=== PATIENT | male | born 1960 | race Two or more races ===

== ENCOUNTER 2024-10-09 11:37 | Inpatient (IN) | payer OTHER ==
[2024-10-09 11:59] VITALS: BMI 14.8
[2024-10-09] MEDS ORDERED: MORPHINE SULFATE 2 MG/ML SYRINGE ONE (13:05)
[2024-10-09 13:51] LABS: ABSOLUTE IMMATURE GRANULOCYTES 0.02 x10^3/uL (0.0-0.031); BASOPHILS # 0.04 x10^3/uL (0.01-0.08); EOSINOPHIL % 2.8 % (0.8-7.0); EOSINOPHILS # 0.16 x10^3/uL (0.04-0.54); HEMATOCRIT 35.6 % (40.1-51.0); HEMOGLOBIN 12.4 g/dL (13.7-17.5); MCHC 34.8 g/dl (32.3-36.5); MEAN CELL VOLUME 91.5 fl (79.0-92.2); MEAN PLT VOLUME 9.5 fl (9.4-12.4); MONOCYTE # 0.64 x10^3/uL (0.30-0.82); MONOCYTE % 11.3 % (5.3-12.2); PLATELET COUNT 362 x10^3/uL (163-337)
[2024-10-09] MEDS ORDERED: PIPERACILLIN/TAZOB 4.5 GM 4.5 GM/100 ML BAG IVPB ONE (13:55)
[2024-10-09 14:01] LABS: POTASSIUM 5.6 mmol/L (3.5-5.1)
[2024-10-09 14:04] LABS: ALBUMIN 3.5 g/dl (3.4-5.0); CALCIUM 9.8 mg/dL (8.5-10.1)
[2024-10-09 14:05] LABS: BLOOD UREA NITROGEN 6.1 mg/dL (7-18)
[2024-10-09 14:07] LABS: CREATININE 0.6 mg/dL (0.55-1.3)
[2024-10-09 14:09] LABS: BILIRUBIN,TOTAL 0.5 mg/dL (0.2-1); TOT PROT 7.8 g/dl (6.4-8.2)
[2024-10-09] MEDS: PIPERACILLIN/TAZOB 4.5 GM 4.5 GM in DEXTROSE 5%-WATER 100 ML IVPB ONE (14:25)
[2024-10-09] MEDS: morphine CARPU-JECT 2 MG/1 ML DISP.SYRIN IVPUSH ONE (14:36)
[2024-10-09] MEDS ORDERED: MEROPENEM 1 GM VIAL (RESTRICTED TO ID) IVPB ONE (14:42)
[2024-10-09 14:46] LABS: INR 1.14 (0.83-1.09); PROTHROMBIN TIME (PATIENT) 12.5 SEC (9.7-13.0)
[2024-10-09 14:48] LABS: ACTIVATED PTT 28.2 SECONDS (25.2-36.5)
[2024-10-09] MEDS: MEROPENEM 1 GM in DEXTROSE 5%-WATER 100 ML IVPB ONE (14:49)
[2024-10-09] MEDS: morphine CARPU-JECT 2 MG/1 ML DISP.SYRIN IM ONE (14:53)
[2024-10-09] MEDS ORDERED: VANCOMYCIN 1 GM PREMIX (F) 1 GM/200 ML BAG ONE (15:03)
[2024-10-09] MEDS: morphine CARPU-JECT 8 MG/1 ML DISP.SYRIN IVPUSH ONE (15:13)
[2024-10-09] MEDS: VANCOMYCIN 1 GM PREMIX (F) 1 GM/200 ML BAG IVPB ONE (16:00)
[2024-10-09] MEDS: SODIUM CHLORIDE 500 ML IV STA (17:56)
[2024-10-09] MEDS ORDERED: MEROPENEM 1 GM in DEXTROSE 5%-WATER 100 ML IVPB SCH ×2 (18:00→22:00)
[2024-10-09] MEDS ORDERED: diphenhydrAMINE HCL 25 MG CAPSULE (FP) PO PRN (18:12)
[2024-10-09] MEDS ORDERED: ALBUTEROL SO4 HFA INHALER IH PRN (18:32)
[2024-10-09] MEDS: SODIUM CHLORIDE 1,000 ML IV SCH (18:48)
[2024-10-09] MEDS: MEROPENEM 1 GM in DEXTROSE 5%-WATER 100 ML IVPB SCH (21:46)
[2024-10-10] MEDS ORDERED: VANCOMYCIN 1,000 MG in DEXTROSE 5%-WATER - 250 ML IVPB SCH (06:00)
[2024-10-10 08:37] LABS: Reticulocyte % 1.57 % (0.51-1.81)
[2024-10-10 08:38] LABS: ABSOLUTE IMMATURE GRANULOCYTES 0.02 x10^3/uL (0.0-0.031); BASOPHILS # 0.05 x10^3/uL (0.01-0.08); EOSINOPHIL % 2.5 % (0.8-7.0); EOSINOPHILS # 0.13 x10^3/uL (0.04-0.54); HEMATOCRIT 33.2 % (40.1-51.0); HEMOGLOBIN 11.5 g/dL (13.7-17.5); MCHC 34.6 g/dl (32.3-36.5); MEAN CELL VOLUME 92.5 fl (79.0-92.2); MEAN PLT VOLUME 7.9 fl (9.4-12.4); MONOCYTE # 0.73 x10^3/uL (0.30-0.82); MONOCYTE % 14.1 % (5.3-12.2); PLATELET COUNT 317 x10^3/uL (163-337)
[2024-10-10 08:46] LABS: POTASSIUM 4.2 mmol/L (3.5-5.1)
[2024-10-10 08:54] LABS: MAGNESIUM 1.5 mg/dL (1.8-2.4)
[2024-10-10 08:55] LABS: CREATININE 0.5 mg/dL (0.55-1.3)
[2024-10-10 08:57] LABS: ALBUMIN 2.9 g/dl (3.4-5.0)
[2024-10-10 08:59] LABS: PHOSPHOROUS 3.4 mg/dL (2.5-4.9)
[2024-10-10 09:01] LABS: BILIRUBIN,TOTAL 0.2 mg/dL (0.2-1); BLOOD UREA NITROGEN 4.7 mg/dL (7-18); CALCIUM 9.2 mg/dL (8.5-10.1); TOT PROT 6.1 g/dl (6.4-8.2)
[2024-10-10] MEDS ORDERED: LISINOPRIL 5 MG TABLET PO SCH (10:00)
[2024-10-10] MEDS ORDERED: REGADENOSON 0.4 MG/5 ML PRE-FILLED SYRINGE IVPUSH ONE (12:22)
[2024-10-10] MEDS ORDERED: AMINOPHYLLINE 250 MG/10 ML VIAL ONE (14:46)
[2024-10-10] MEDS: AMINOPHYLLINE 250 MG/10 ML VIAL IVPUSH ONE (14:53)
[2024-10-10] MEDS: REGADENOSON 0.4 MG/5 ML PRE-FILLED SYRINGE IVPUSH ONE (14:53)
[2024-10-10] MEDS: MAGNESIUM SULF 50% (8.12 MEQ/2 ML-1 GM VIAL) IVPB ONE (15:59)
[2024-10-10] MEDS: TIOTROPIUM BROMIDE 2.5 MCG (SPIRIVA) RESPIMAT INHALER IH SCH (15:59)
[2024-10-10] MEDS: MEROPENEM 1 GM in DEXTROSE 5%-WATER 100 ML IVPB SCH (17:29)
[2024-10-11] MEDS: ACETAMINOPHEN 1000 MG/100 ML BAG IVPB PRN (09:14)
[2024-10-11 09:45] VITALS: RESP 18
[2024-10-11] MEDS: metoPROLOL SUCCINATE 25 MG TAB.SR.24H (FP) PO SCH (11:15)
[2024-10-12 09:28] LABS: POTASSIUM 4.4 mmol/L (3.5-5.1)
[2024-10-12 09:30] LABS: ALBUMIN 3.1 g/dl (3.4-5.0); CALCIUM 9.8 mg/dL (8.5-10.1)
[2024-10-12 09:31] LABS: BLOOD UREA NITROGEN 8.3 mg/dL (7-18)
[2024-10-12 09:34] LABS: CREATININE 0.5 mg/dL (0.55-1.3)
[2024-10-12 09:35] LABS: BILIRUBIN,TOTAL 0.2 mg/dL (0.2-1); TOT PROT 6.7 g/dl (6.4-8.2)
[2024-10-12] MEDS: LISINOPRIL 5 MG TABLET PO SCH (09:53)
[2024-10-12] MEDS: metoPROLOL SUCCINATE 25 MG TAB.SR.24H (FP) PO SCH (09:53)
[2024-10-12 14:12] VITALS: BP 130/69; PULSE 62; TEMP 97.7
[2024-10-12] MEDS: ATORVASTATIN CA 80 MG TABLET (FP) PO ONE (15:45)
[2024-10-13] MEDS ORDERED: ATORVASTATIN CA 80 MG TABLET (FP) PO SCH (22:00)
== END 2024-10-12 17:49 | disposition short-term general hospital (02) | DRG 314 ==
LOC: JER 11:37 → JERBED 14:06 → J5S 19:02
PROVIDERS: ADMIT Student in an Organized Health Care Education/Training Program
DX: I97.89 Other postprocedural complications and disorders of the circulatory system, not elsewhere classified (principal); E43 Unspecified severe protein-calorie malnutrition; E87.1 Hypo-osmolality and hyponatremia; L97.528 Non-pressure chronic ulcer of other part of left foot with other specified severity; Z68.1 Body mass index [BMI] 19.9 or less, adult; I73.9 Peripheral vascular disease, unspecified; J44.9 Chronic obstructive pulmonary disease, unspecified; D64.9 Anemia, unspecified; I10 Essential (primary) hypertension; E78.5 Hyperlipidemia, unspecified; F32.A Depression, unspecified; E55.9 Vitamin D deficiency, unspecified; G47.00 Insomnia, unspecified; H02.109 Unspecified ectropion of unspecified eye, unspecified eyelid; Z85.810 Personal history of malignant neoplasm of tongue; Z93.1 Gastrostomy status
CPT/HCPCS: 36415; 73630-TC-LT; 75635-TC; 78452-TC; 80053; 82728; 83540; 83735; 84100; 85025; 85610; 85730; 86850; 86900; 86901; 87040; 87070; 87186; 87205; 87635; 93005; 93010; 93017; 93306-TC; 99285-25; A9502; J0131; J2785; Q9967